=== PATIENT | female | born 1950 | race Asian ===

== ENCOUNTER 2016-11-23 09:50 | Outpatient (RCR) | payer OTHER | END 2016-11-26 | disposition home or self-care (01) | LOC: PTY 09:50 | DX: M94.261 Chondromalacia, right knee (principal); M17.11 Unilateral primary osteoarthritis, right knee; M75.42 Impingement syndrome of left shoulder | CPT/HCPCS: 97110; 97140; 97161; G0283 ==

== ENCOUNTER 2016-12-21 11:15 | Outpatient (RCR) | payer OTHER | END 2016-12-26 | disposition home or self-care (01) | LOC: PTY 11:15 | DX: M94.261 Chondromalacia, right knee (principal); M17.11 Unilateral primary osteoarthritis, right knee | CPT/HCPCS: 97110; 97140; G0283 ==

== ENCOUNTER 2017-01-18 11:15 | Outpatient (RCR) | payer OTHER | END 2017-01-26 | disposition home or self-care (01) | LOC: PTY 11:15 | DX: M94.261 Chondromalacia, right knee (principal); M17.11 Unilateral primary osteoarthritis, right knee | CPT/HCPCS: 97110; G0283 ==

== ENCOUNTER 2017-02-01 11:23 | Outpatient (RCR) | payer OTHER | END 2017-02-25 | disposition home or self-care (01) | LOC: PTY 11:23 | DX: M94.261 Chondromalacia, right knee (principal); M17.11 Unilateral primary osteoarthritis, right knee | CPT/HCPCS: 97110; G0283 ==